=== PATIENT | female | born 1975 | race Caucasian/White ===

== ENCOUNTER → 2020-11-10 | Outpatient (CLI) | payer OTHER | LOC: EMI 09:44 | DX: G25.3 Myoclonus (principal) | CPT/HCPCS: 70551 ==

== ENCOUNTER → 2020-12-15 | Outpatient (CLI) | payer OTHER | LOC: KOH-I 11:36 | DX: M25.511 Pain in right shoulder (principal); M19.011 Primary osteoarthritis, right shoulder | CPT/HCPCS: 73030 ==

== ENCOUNTER 2020-12-22 23:31 | Emergency (ER) | payer OTHER | END 2020-12-22 23:50 | disposition left against medical advice (07) | LOC: ER1 23:31 | DX: Z53.21 Procedure and treatment not carried out due to patient leaving prior to being seen by health care provider (principal) ==

== ENCOUNTER 2021-02-14 17:02 | Emergency (ER) | payer OTHER ==
[2021-02-14 18:24] LABS: HEMOGLOBIN 12.2 gm/dl (12.3-15.3); RED BLOOD COUNT 3.99 M/UL (4.00-5.10); WHITE BLOOD COUNT 11.3 K/UL (4.5-11.0)
[2021-02-14 18:45] LABS: BUN/CREATININE RATIO 13 (0-10)
[2021-02-14] MEDS ORDERED: TESSALON PERLE100 MG PO (20:58)
== END 2021-02-14 21:12 | disposition home or self-care (01) ==
LOC: ER1 17:02
PROVIDERS: Emergency Medicine
DX: U07.1 COVID-19 (principal); J12.82 Pneumonia due to coronavirus disease 2019; K75.9 Inflammatory liver disease, unspecified
CPT/HCPCS: 80053; 82550; 82553; 83874; 84484; 85025; 85610; 85730; 93005; 99284; Q9967

== ENCOUNTER → 2021-03-28 | Outpatient (CLI) | payer OTHER ==
[~2021-03-28] MED LIST: TESSALON PERLE100 MG PO
== END ==
LOC: HEART 5 14:35
DX: R00.2 Palpitations (principal); R42 Dizziness and giddiness

== ENCOUNTER → 2021-05-03 | Outpatient (CLI) | payer OTHER | LOC: KOH-I 14:21 | DX: M75.121 Complete rotator cuff tear or rupture of right shoulder, not specified as traumatic (principal); M25.311 Other instability, right shoulder | CPT/HCPCS: 73221 ==

== ENCOUNTER → 2021-05-09 | Outpatient (CLI) | payer OTHER | LOC: HEART 5 04-26 11:30 | DX: I47.1 Supraventricular tachycardia (principal) | CPT/HCPCS: 93306 ==

== ENCOUNTER → 2022-02-13 | Outpatient (CLI) | payer OTHER | LOC: EXRD 10:19 | DX: S99.921A Unspecified injury of right foot, initial encounter (principal); X58.XXXA Exposure to other specified factors, initial encounter | CPT/HCPCS: 73630 ==